=== PATIENT | male | born 1970 | race African-American/Black ===

== ENCOUNTER 2018-04-05 14:40 | Emergency (ER) | END 2018-04-05 15:56 | disposition home or self-care (01) ==

== ENCOUNTER 2018-06-10 16:30 | Emergency (ER) | END 2018-06-10 19:01 | disposition left against medical advice (07) ==

== ENCOUNTER 2019-04-25 11:36 | Emergency (ER) | payer SELFPAY ==
[~2019-04-25] VITALS: Ht 175.3 cm; Wt 144.9 kg
[~2019-04-25 11:36] MED LIST: DOXY100T20 PO; IBUP-1542 PO; TRIA15CR55 TOP
[2019-04-25 11:39] VITALS: BP 161/94; PULSE 70; RESP 18; Ht 175.3 cm; Wt 144.9 kg
== END 2019-04-25 15:08 | disposition left against medical advice (07) ==
LOC: E/R 11:36
DX: Z53.21 Procedure and treatment not carried out due to patient leaving prior to being seen by health care provider (principal)
CPT/HCPCS: 93005